=== PATIENT | male | born 1970 | race Caucasian/White ===

== ENCOUNTER 2023-11-09 23:50 | Emergency (ER) | payer SELFPAY ==
[~2023-11-09] VITALS: Ht 160 cm; Wt 103.0 kg
[2023-11-10 00:10] VITALS: BP 137/84; PULSE 68; RESP 16; TEMP 97.4; O2SAT 100
[2023-11-10] MEDS ORDERED: HYDR-5071 PO (00:55)
[2023-11-10] MEDS ORDERED: IBUP-2218 PO (00:55)
[2023-11-10] MEDS ORDERED: AMOX1TAB8 PO (00:55)
[2023-11-10] MEDS: IBUPROFEN 800 MG TAB PO ONE (01:05)
[2023-11-10] MEDS: AMOXIL/CLAVULANATE 875/125 MG 1 TAB PO ONE (01:05)
== END 2023-11-10 01:04 | disposition home or self-care (01) ==
LOC: MED 23:50
DX: K04.7 Periapical abscess without sinus (principal); E11.9 Type 2 diabetes mellitus without complications; I10 Essential (primary) hypertension; E78.5 Hyperlipidemia, unspecified; Z79.899 Other long term (current) drug therapy
CPT/HCPCS: 99283